=== PATIENT | female | born 1995 | race Caucasian/White ===

== ENCOUNTER 2022-03-14 09:42 | Outpatient (CLI) | payer BC, SELFPAY ==
--- NOTE | ~2022-03-14 | US_ITS ---
EXAMINATION: US pelvic complete w TV DATE: 03/14/2022 10:19 INDICATION: IUD displacement Comparison:No prior studies for comparison. TECHNIQUE: Multiple transabdominal and endovaginal sonographic images of the pelvis performed. FINDINGS: The uterus measures 9.5 x 4.8 x 5.6 cm. IUD is present in the lower uterine segment. The en dometrial complex measures 2.8 x 2.5 x 3.3 cm. The right ovary measures 4.1 x 3 x 2.8 cm and the left ovary measures . There are small follicles in each ovary. Normal doppler signal in both ovaries. There is no free fluid in the pelvis. There are no abnormal masses seen on either side. IMPRESSION: 1. Unremarkable pelvic ultrasound. IUD present in the lower uterine segment. Reviewed, dictated and finalized at location A.
== END 2022-03-14 09:43 ==
PROVIDERS: PCP Obstetrics & Gynecology; Visit Provider Obstetrics & Gynecology
DX: T83.32XA Displacement of intrauterine contraceptive device, initial encounter (principal)
CPT/HCPCS: 76830; 76856

== ENCOUNTER 2023-11-18 08:29 | Outpatient (CLI) | payer BC, SELFPAY ==
[2023-11-18 20:08] LABS: Hematocrit 43.8 % (37.0-47.0); Hemoglobin 13.6 g/dL (12.0-15.0); Mean Corpuscular HGB Conc 31.1 g/dl (32-36); Mean Corpuscular Hemoglobin 27.4 pg (26-34); Mean Corpuscular Volume 88.1 fl (80-100); Mean Platelet Volume 10.6 fl (7.4-10.4); Platelet Count Result 315 k/mm3 (150-375); Red Blood Count 4.97 M/mm3 (4.2-5.4); Red Cell Distribution Width 14.5 % (11.5-14.5); White Blood Count 7.7 K/mm3 (4.5-10.0)
[2023-11-18 20:48] LABS: Alanine Aminotransferase 70 U/L (6-35); Albumin Level 4.6 g/dL (3.5-5.1); Alkaline Phosphatase 90 U/L (38-126); Anion Gap 5 mmol/L (4-12); Aspartate Amino Transferase 61 U/L (14-36); Bilirubin,Total 0.6 mg/dL (0.2-1.3); Blood Urea Nitrogen 14 mg/dL (7-17); Calcium 9.5 mg/dL (8.4-10.2); Carbon Dioxide 29 mmol/L (22-30); Chloride 105 mmol/L (98-107); Cholesterol 173 mg/dL (0-200); Estimated Glomerular Filt Rate > 60; Glucose 99 mg/dL (65-110); HDL Direct 32 mg/dL; Potassium 4.3 mmol/L (3.4-5.0); Sodium 139 mmol/L (137-145); Triglycerides 119 mg/dL (<150)
[2023-11-18 20:58] LABS: LDL Cholesterol Direct 119 mg/dL
[2023-11-18 21:14] LABS: Free T4 Free Thyroxine 1.11 ng/mL (0.78-2.19)
[2023-11-18 21:18] LABS: Hemoglobin A1C 5.7 % (<5.7)
[2023-11-22 12:02] LABS: Thyroid Peroxidase Antibodies 3 IU/mL (<9)
== END 2023-11-18 08:30 | disposition home or self-care (01) ==
LOC: ANHBWCLAB 08:30
PROVIDERS: PCP Nurse Practitioner Adult Health; Visit Provider Nurse Practitioner Adult Health
DX: Z13.9 Encounter for screening, unspecified (principal); Z83.3 Family history of diabetes mellitus; E66.9 Obesity, unspecified
CPT/HCPCS: 36415; 80053; 80061; 83036; 84439; 84443; 85027; 86376